=== PATIENT | male | born 1970 | race African-American/Black ===

== ENCOUNTER 2018-08-08 14:28 | Observation (INO) | payer MEDICARE, OTHER ==
[2018-08-08 15:15] LABS: #Eosinphils 0.1 thou/uL (0.0-0.7); #Lymphocytes 0.8 thou/uL (1.20-3.40); #Monocytes 0.4 thou/uL (0.11-0.59); #Neutrophils 2.6 thou/uL (1.40-6.50); %Eosinophils 2.5 % (0.0-10.0); %Lymphocytes 20.4 % (21.0-51.0); %Monocytes 10.6 % (0.0-10.0); %Neutrophils 65.5 % (42.0-75.0); Hemoglobin 8.6 g/dL (14.0-18.0); Mean Corpuscular HGB CONC 32.8 g/dL (32.0-36.0); Mean Corpuscular Hemoglobin 31.4 pg (27.0-31.0); Mean Corpuscular Volume 95.8 fL (78.0-98.0); Mean Platelet Volume 6.1 fL (7.4-10.4); Platelet Count 151 thou/uL (130-400); RBC Distribution Width 15.5 % (11.5-14.5); Red Blood Cell (RBC) Count 2.74 mill/uL (4.70-6.10)
[2018-08-08 15:35] LABS: ALT (SGPT) 7 U/L (8-55); AST (SGOT) 8 U/L (5-34); Albumin 3.4 g/dL (3.5-5.0); Alkaline Phosphatase 42 U/L (40-150); Anion Gap 14 mmol/L (10-20); BUN (Urea Nitrogen) 48 mg/dL (8.9-20.6); Bilirubin, Total 0.2 mg/dL (0.2-1.2); Calc. Creatinine Clearance 0 mL/min (70-130); Calcium 9.1 mg/dL (7.8-10.44); Carbon Dioxide 28 mmol/L (22-29); Chloride 102 mmol/L (98-107); Estimated GFR-MDRD 9; Globulin 2.7 g/dL (2.4-3.5); Glucose 87 mg/dL (70-105); Potassium 5.8 mmol/L (3.5-5.1); Protein, Total 6.1 g/dL (6.0-8.3); Sodium 138 mmol/L (136-145)
[2018-08-08 16:42] LABS: HBSAg Index 0.17 S/CO (0-0.99); Hep B Core Total Ab Non-Reactive (NonReactive); Hep B Core Total Index 0.04 S/CO (0-0.79); Hep B Surf Ag Non-Reactive S/CO (NonReactive); Hep C IgG Ab Non-Reactive (NonReactive); Hep C Index 0.04 S/CO (0-0.79)
[2018-08-08 17:30] LABS: HBSAB Concentration 8249.15 mIU/mL; Hep B Surf AB Reactive (NonReactive)
[2018-08-08] MEDS ORDERED: Ondansetron PF 4 MG/2 ML Vial IVP PRN ×2 (18:43→19:24)
[2018-08-08] MEDS ORDERED: Ondansetron ODT 4 MG TAB SL PRN (18:43)
[2018-08-08] MEDS ORDERED: Acetaminophen 325 MG TAB PO PRN (19:24)
[2018-08-08] MEDS ORDERED: Ondansetron ODT 4 MG TAB PO PRN (19:24)
--- NOTE | 2018-08-08 20:52 | HP ---
PRIMARY CARE PHYSICIAN: Dr. Lenore Fong at [facility]. CHIEF COMPLAINT: The patient was transferred from [facility] for hemodialysis. HISTORY OF PRESENT ILLNESS: The patient is a 48-year-old male with end-stage renal disease, on hemodialysis and recent hemorrhagic CVA, status post craniectomy; who was brought in from [facility]. The patient was admitted at [facility] yesterday. He underwent right occipital temporal intracranial hemorrhage with a 9-mm midline shift requiring craniectomy on August 10, 2018. He also was started on antiseizure medication. It is unclear when he was started on hemodialysis. He was admitted to inpatient rehabilitation at an outside facility on July 13, 2018. He stayed at the inpatient rehab facility for approximately 4 weeks and was transferred to [facility] yesterday. At this time, the patient appears comfortable. He is currently undergoing dialysis. There is no family at the bedside. The patient is a poor historian and not much information is available from the patient. He denies any pain, shortness of breath, or chest pain. In the emergency room, initial vital signs showed temperature 97.9, respirations 14, pulse rate of 81 with blood pressure of 135/85 with O2 saturation 100% on room air. His potassium was 5.8 with BUN of 48, creatinine 7.72. His EKG showed sinus rhythm with some peaked T-wave changes. PAST MEDICAL HISTORY: 1. Right occipital temporal intracranial hemorrhage with 9-mm midline shift, status post craniectomy on June 10, 2018. 2. Seizure disorder. 3. End-stage renal disease, on hemodialysis. 4. Hypertension. 5. Swallow dysfunction, on pureed diet. PAST SURGICAL HISTORY: 1. Craniectomy. 2. Dialysis access. ALLERGIES: THE PATIENT IS ALLERGIC TO MORPHINE. CURRENT MEDICATIONS: At [facility]; 1. Methylphenidate 5 mg b.i.d. 2. Calcitriol 0.25 mcg 2 tablets in the evening. 3. Divalproex sodium 250 mg 3 times a day. 4. Lasix 40 mg daily. 5. Gabapentin 200 mg b.i.d. 6. Ferrous sulfate 325 mg daily. 7. Lisinopril 20 mg daily. 8. Melatonin 3 mg at bedtime. 9. MiraLAX daily. 10. Senokot-S 1 tablet daily. 11. Trazodone 25 mg at bedtime. 12. Metoprolol 12.5 mg b.i.d. 13. [place] as needed. SOCIAL HISTORY: The patient currently resides at [facility]. There is no smoking, alcohol, or drug use reported. He used to drink alcohol socially. FAMILY HISTORY: Cannot be reliably obtained from the patient due to current cognitive status. REVIEW OF SYSTEMS: Cannot be reliably obtained from the patient due to current cognitive status. PHYSICAL EXAMINATION: VITAL SIGNS: Temperature 97.9, respirations 14, pulse rate of 81, blood pressure 135/85 with O2 saturation 100% on room air. GENERAL: A 48-year-old male in no apparent distress, undergoing hemodialysis. HEENT: Moist mucous membranes. No oral lesions. The patient has a helmet on. NECK: Supple. No JVD. No carotid bruits. LUNGS: Clear to auscultation bilaterally with minimal rales at bases. HEART: S1 and S2 present. Regular rate and rhythm. No murmurs, rubs, or gallops. ABDOMEN: Soft and nontender. Bowel sounds are present. EXTREMITIES: No edema or calf tenderness in lower extremities. Dialysis access noted in the right upper extremity. NEUROLOGIC: The patient is spontaneously moving all 4 extremities. Detailed neurological and psychiatry examination could not be done due to current cognitive status. SKIN: Warm and dry. LYMPH: No palpable lymph nodes in the neck. Peripheral vascular radial pulses palpable bilaterally. MUSCULOSKELETAL: No joint swelling or tenderness. LABORATORY FINDINGS: Potassium 5.8 with sodium 138, chloride 102, bicarb 28, BUN 48, creatinine 7.72. WBC 4.0 with hemoglobin 8.6, hematocrit 26.2, platelets 151. EKG by my review, as discussed above. IMPRESSION: 1. End-stage renal disease, on hemodialysis. The patient will need outpatient dialysis setup. 2. Hyperkalemia with EKG changes. 3. Hypertension. 4. Recent intracranial hemorrhage requiring craniectomy. 5. Anemia secondary to renal insufficiency. 6. Seizure disorder. 7. Swallow dysfunction, currently on pureed diet per longterm records. PLAN: The patient is undergoing emergent hemodialysis. Nephrology has been consulted. We will hold FRANCESCA inhibitor for now. We will resume all other home medications. Seizure precautions. We will repeat labs in a.m. Plan of care was discussed with the patient in detail. We will discuss the plan of care with the family when they arrive. Job ID: [id number] [facility]
[2018-08-08] MEDS: Metoprolol Tartrate 25 MG TAB PO SCH (23:01)
[2018-08-08] MEDS: Divalproex Sodium 250 MG (DR) TAB PO SCH (23:01)
[2018-08-08] MEDS: Famotidine 20 MG TAB PO SCH (23:02)
[2018-08-08] MEDS: Gabapentin 100 MG CAP PO SCH (23:02)
--- NOTE | 2018-08-08 23:28 | RAD ---
TWO VIEWS OF THE CHEST: 08/08/18 COMPARISON: None. HISTORY: Fluid overload. FINDINGS: Two views of the chest show normal sized cardiomediastinal silhouette. There is no evidence of consol idation, mass, or pleural effusion. The bones are unremarkable. IMPRESSION: No evidence of acute cardiopulmonary disease. POS: [facility]
[2018-08-08] MEDS: traZODone HCl 50 MG TAB PO SCH (23:49)
[2018-08-08] MEDS: Melatonin 3 MG TAB PO SCH (23:49)
[2018-08-09 00:09] VITALS: BMI 25.0
[2018-08-09 07:29] LABS: Anion Gap 12 mmol/L (10-20); BUN (Urea Nitrogen) 33 mg/dL (8.9-20.6); Calc. Creatinine Clearance 18 mL/min (70-130); Calcium 8.9 mg/dL (7.8-10.44); Carbon Dioxide 30 mmol/L (22-29); Chloride 101 mmol/L (98-107); Estimated GFR-MDRD 12; Glucose 61 mg/dL (70-105); Potassium 4.7 mmol/L (3.5-5.1); Sodium 138 mmol/L (136-145)
[2018-08-09] MEDS: Polyethylene Glycol 3350 17 GM Packet PO SCH (08:37)
[2018-08-09] MEDS: Gabapentin 100 MG CAP PO SCH ×2 (08:37→21:16)
[2018-08-09] MEDS: Furosemide 40 MG TAB PO SCH (08:37)
[2018-08-09] MEDS: Senokot S 8.6-50 MG TAB PO SCH (08:37)
[2018-08-09] MEDS: Metoprolol Tartrate 25 MG TAB PO SCH ×2 (08:37→21:19)
[2018-08-09] MEDS ORDERED: Prevnar 13-Val Conj/PF 0.5 ML SYRINGE IM ONE (09:00)
[2018-08-09] MEDS: Divalproex Sodium 250 MG (DR) TAB PO SCH ×3 (09:46→21:22)
--- NOTE | 2018-08-09 19:07 | PDOC.PN ---
- Subjective Encounter Start Date: 08/09/18 Encounter Start Time: 08:30 Patient seen and examined for Hyperkalemia. No new complaints. No overnight events - Objective Resuscitation Status - Order Detail: 08/08/18 19:24 Resuscitation Status Routine Resuscitation Status: FULL: Full Resuscitation MAR Reviewed: Yes Vital Signs & Weight: Vital Signs (12 hours) Temp Pulse Resp BP Pulse Ox 08/09/18 16:00 98.4 F 83 18 105/70 100 08/09/18 11:12 98.1 F 85 18 126/87 08/09/18 08:08 99.1 F 78 14 118/82 100 Weight Admit Weight 179 lb 1.6 oz Weight 179 lb 1.6 oz Result Diagrams: 08/08/18 15:05 08/09/18 05:41 EKG Reviewed by me: Yes (Tele SR) Phys Exam - Physical Examination Constitutional: NAD Respiratory: no wheezing, no rhonchi Cardiovascular: RRR, no rub Gastrointestinal: soft, non-tender, positive bowel sounds Musculoskeletal: no edema Neurological: moves all 4 limbs Dx/Plan - Plan DVT proph w/SCDs IMPRESSION: 1. End-stage renal disease, on hemodialysis. 2. Hyperkalemia with EKG changes. 3. Hypertension. 4. Recent intracranial hemorrhage requiring craniectomy. 5. Anemia secondary to renal insufficiency. 6. Seizure disorder. 7. Swallow dysfunction, currently on pureed diet per retirement records. PLAN: Await outpatient dialysis setup. Dialysis per Nephrology Cont current meds as below Review of Systems - Review of Systems Other: Cannot obtain due to current mentation. - Medications/Allergies Allergies/Adverse Reactions: Allergies Allergy/AdvReac Type Severity Reaction Status Date / Time morphine Allergy Verified 08/08/18 20:48 Medications: Current Medications Acetaminophen (Tylenol) 650 mg PO Q4H PRN PRN Reason: Headache/Fever/Mild Pain (1-3) Divalproex Sodium (Depakote) 500 mg PO Q8HR [facility] Famotidine (Pepcid) 20 mg PO QPM [facility] Last Admin: 08/08/18 23:02 Dose: 20 mg Furosemide (Lasix) 40 mg PO DAILY-AC [facility] Last Admin: 08/09/18 08:37 Dose: 40 mg Gabapentin (Neurontin) 200 mg PO BID [facility] Last Admin: 08/09/18 08:37 Dose: 200 mg Melatonin (Melatonin) 3 mg PO HS [facility] Last Admin: 08/08/18 23:49 Dose: 3 mg Metoprolol Tartrate (Lopressor) 12.5 mg PO BID [facility] Last Admin: 08/09/18 08:37 Dose: 12.5 mg Ondansetron HCl (Zofran Odt) 4 mg PO Q6H PRN PRN Reason: Nausea/Vomiting Ondansetron HCl (Zofran) 4 mg IVP Q6H PRN PRN Reason: Nausea/Vomiting Polyethylene Glycol (Miralax) 17 gm PO DAILY [facility] Last Admin: 08/09/18 08:37 Dose: 17 gm Senna/Docusate Sodium (Senokot S) 1 tab PO DAILY [facility] Last Admin: 08/09/18 08:37 Dose: 1 tab Sodium Chloride (Flush - Normal Saline) 10 ml IVF Q12HR [facility] Last Admin: 08/09/18 08:38 Dose: 10 ml Sodium Chloride (Flush - Normal Saline) 10 ml IVF PRN PRN PRN Reason: Saline Flush Trazodone HCl (Desyrel) 25 mg PO HS [facility] Last Admin: 08/08/18 23:49 Dose: 25 mg
[2018-08-09] MEDS: Famotidine 20 MG TAB PO SCH (21:16)
[2018-08-09] MEDS: Melatonin 3 MG TAB PO SCH (21:17)
[2018-08-09] MEDS: traZODone HCl 50 MG TAB PO SCH (21:21)
[2018-08-10 05:59] LABS: Anion Gap 14 mmol/L (10-20); BUN (Urea Nitrogen) 50 mg/dL (8.9-20.6); Calc. Creatinine Clearance 13 mL/min (70-130); Calcium 8.8 mg/dL (7.8-10.44); Carbon Dioxide 25 mmol/L (22-29); Chloride 103 mmol/L (98-107); Estimated GFR-MDRD 9; Glucose 70 mg/dL (70-105); Potassium 5.2 mmol/L (3.5-5.1); Sodium 137 mmol/L (136-145)
[2018-08-10] MEDS: Divalproex Sodium 250 MG (DR) TAB PO SCH ×3 (06:07→21:03)
--- NOTE | 2018-08-10 07:48 | CON ---
DATE OF CONSULTATION: 08/08/2018 TYPE OF CONSULTATION: Nephrology CONSULTING PHYSICIAN: Dr. Strauss. REASON FOR CONSULTATION: End-stage renal disease evaluation and care. REASON FOR ADMISSION: Need for dialysis. HISTORY OF PRESENT ILLNESS: This is a 48-year-old male with history of end- stage renal disease, on hemodialysis and hypertension came to the hospital with need for dialysis. The patient was recently moved from [place], but his outpatient dialysis not setup and I was consulted. The patient is being admitted for setting up outpatient dialysis. No fever or chills. No nausea or vomiting. PAST MEDICAL HISTORY: Positive for end-stage renal disease, hypertension, and POVD PAST SURGICAL HISTORY: 1. Dialysis access. 2. Craniectomy surgery. HOME MEDICATIONS: 1. Methylphenidate. 2. Calcitriol. 3. Divalproex. 4. Furosemide. 5. Melatonin. 6. Ferrous sulfate. 7. Lisinopril. 8. Gabapentin. 9. [place]. 10. Metoprolol. 11. Trazodone. 12. Senna. ALLERGIES: MORPHINE. SOCIAL HISTORY: No smoking, alcohol, or illicit drug use. FAMILY HISTORY: No history of any kidney disease. REVIEW OF SYSTEMS: CONSTITUTIONAL: Negative for weight loss or gain, ability to conduct usual activities. SKIN: Negative for rash, itching. EYES: Negative for double vision, pain. ENT/MOUTH: Negative for nose bleeding, neck stiffness, pain, tenderness. CARDIOVASCULAR: Negative for palpitations, dyspnea on exertion, orthopnea. RESPIRATORY: Negative for shortness of breath, wheezing, cough, hemoptysis, fever or night sweats. GASTROINTESTINAL: Negative for poor appetite, abdominal pain, heartburn, nausea , vomiting, constipation, or diarrhea. GENITOURINARY: Negative for urgency, frequency, dysuria, nocturia. MUSCULOSKELETAL: Negative for pain, swelling. NEUROLOGIC/PSYCHIATRIC: Negative for anxiety, depression. ALLERGY/IMMUNOLOGIC: Negative for skin rash, bleeding tendency. PHYSICAL EXAMINATION: GENERAL: Reveals a well-built male, in no apparent distress. VITAL SIGNS: Temperature 97.9, pulse 81, respiratory rate 14, and blood pressure 133/85. Musculoskeletal : No tenderness, No edema HEENT: Atraumatic normocephalic Neck: Supple Cardiovascular: S1S2 heard, Rate and rhythm regular Respiratory: Clear to auscultation Gastrointestinal: Abdomen is soft Dermatologic : No skin rash Neurologic: Alert and awake and oriented X3 No focal neurologic deficits. Moving all the extremities. Psychiatric: Mood and affect normal LABORATORY DATA: Hemoglobin 8.6, potassium 5.8. BUN is 48, and creatinine 7.7. ASSESSMENT/PLAN: 1. End-stage renal disease, we will continue on hemodialysis. 2. Hyperkalemia. 3. Anemia. 4. edema Plan is to continue dialysis. Thank you for the consult. Job ID: [id number] [facility]
[2018-08-10] MEDS: Senokot S 8.6-50 MG TAB PO SCH (10:28)
[2018-08-10] MEDS: Gabapentin 100 MG CAP PO SCH ×2 (10:28→21:03)
[2018-08-10] MEDS: Metoprolol Tartrate 25 MG TAB PO SCH ×2 (10:29→21:04)
[2018-08-10] MEDS: Furosemide 40 MG TAB PO SCH (10:29)
[2018-08-10] MEDS: Polyethylene Glycol 3350 17 GM Packet PO SCH (10:35)
--- NOTE | 2018-08-10 20:03 | PDOC.PN ---
- Subjective Encounter Start Date: 08/10/18 Encounter Start Time: 13:00 Patient seen and examined for hyperkalemia. No new complaints. No overnight events - Objective Resuscitation Status - Order Detail: 08/08/18 19:24 Resuscitation Status Routine Resuscitation Status: FULL: Full Resuscitation MAR Reviewed: Yes Vital Signs & Weight: Vital Signs (12 hours) Temp Pulse Resp BP Pulse Ox 08/10/18 16:26 98.1 F 85 18 142/98 H 100 08/10/18 12:00 97.5 F L 80 18 119/82 100 Weight Admit Weight 179 lb 1.6 oz Weight 179 lb 1.6 oz I&O: 08/09/18 08/10/18 08/11/18 06:59 06:59 06:59 Intake Total 610 Balance 610 Result Diagrams: 08/08/18 15:05 08/10/18 04:25 Additional Labs: Accuchecks 08/10/18 08/10/18 16:33 11:44 POC Glucose 85 79 Phys Exam - Physical Examination Constitutional: NAD Respiratory: no wheezing, no rhonchi Cardiovascular: RRR, no rub Gastrointestinal: soft, non-tender, positive bowel sounds Musculoskeletal: no edema Neurological: moves all 4 limbs Dx/Plan - Plan DVT proph w/SCDs IMPRESSION: 1. End-stage renal disease, on hemodialysis. 2. Hyperkalemia with EKG changes. 3. Hypertension. 4. Recent intracranial hemorrhage requiring craniectomy. 5. Anemia secondary to renal insufficiency. 6. Seizure disorder. 7. Swallow dysfunction, currently on pureed diet per correction records. PLAN: Dialysis per Nephrology Cont current meds as below Await outpatient dialysis setup. ACEI on hold Review of Systems - Review of Systems Respiratory: negative: Cough, Dry, Shortness of Breath, Hemoptysis, SOB with Excertion, Pleuritic Pain, Sputum, Wheezing Cardiovascular: negative: chest pain, palpitations, orthopnea, paroxysmal nocturnal dyspnea, edema, light headedness, other - Medications/Allergies Allergies/Adverse Reactions: Allergies Allergy/AdvReac Type Severity Reaction Status Date / Time morphine Allergy Verified 08/08/18 20:48 Medications: Current Medications Acetaminophen (Tylenol) 650 mg PO Q4H PRN PRN Reason: Headache/Fever/Mild Pain (1-3) Divalproex Sodium (Depakote) 500 mg PO Q8HR [facility] Last Admin: 12/03/18 14:55 Dose: 500 mg Famotidine (Pepcid) 20 mg PO QPM [facility] Last Admin: 08/09/18 21:16 Dose: 20 mg Furosemide (Lasix) 40 mg PO DAILY-AC [facility] Last Admin: 08/10/18 10:29 Dose: 40 mg Gabapentin (Neurontin) 200 mg PO BID [facility] Last Admin: 08/10/18 10:28 Dose: 200 mg Melatonin (Melatonin) 3 mg PO [facility] Last Admin: 08/09/18 21:17 Dose: 3 mg Metoprolol Tartrate (Lopressor) 12.5 mg PO BID [facility] Last Admin: 08/10/18 10:29 Dose: 12.5 mg Ondansetron HCl (Zofran Odt) 4 mg PO Q6H PRN PRN Reason: Nausea/Vomiting Ondansetron HCl (Zofran) 4 mg IVP Q6H PRN PRN Reason: Nausea/Vomiting Polyethylene Glycol (Miralax) 17 gm PO DAILY [facility] Last Admin: 08/10/18 10:35 Dose: 17 gm Senna/Docusate Sodium (Senokot S) 1 tab PO DAILY [facility] Last Admin: 08/10/18 10:28 Dose: 1 tab Sodium Chloride (Flush - Normal Saline) 10 ml IVF Q12HR [facility] Last Admin: 08/10/18 10:36 Dose: 10 ml Sodium Chloride (Flush - Normal Saline) 10 ml IVF PRN PRN PRN Reason: Saline Flush Trazodone HCl (Desyrel) 25 mg PO HS [facility] Last Admin: 08/09/18 21:21 Dose: 25 mg
[2018-08-10] MEDS: Famotidine 20 MG TAB PO SCH (21:03)
[2018-08-10] MEDS: Melatonin 3 MG TAB PO SCH (21:03)
[2018-08-10] MEDS: traZODone HCl 50 MG TAB PO SCH (21:04)
[2018-08-11] MEDS: Divalproex Sodium 250 MG (DR) TAB PO SCH ×3 (05:20→20:00)
[2018-08-11 06:53] LABS: Anion Gap 14 mmol/L (10-20); BUN (Urea Nitrogen) 60 mg/dL (8.9-20.6); Calc. Creatinine Clearance 11 mL/min (70-130); Calcium 9.2 mg/dL (7.8-10.44); Carbon Dioxide 24 mmol/L (22-29); Chloride 104 mmol/L (98-107); Estimated GFR-MDRD 7; Glucose 76 mg/dL (70-105); Potassium 5.2 mmol/L (3.5-5.1); Sodium 137 mmol/L (136-145)
[2018-08-11] MEDS: Metoprolol Tartrate 25 MG TAB PO SCH ×2 (12:15→19:58)
[2018-08-11] MEDS: Furosemide 40 MG TAB PO SCH (12:15)
[2018-08-11] MEDS: Senokot S 8.6-50 MG TAB PO SCH (12:15)
[2018-08-11] MEDS: Gabapentin 100 MG CAP PO SCH ×2 (12:15→19:58)
[2018-08-11] MEDS: Polyethylene Glycol 3350 17 GM Packet PO SCH (12:15)
--- NOTE | 2018-08-11 13:25 | PRG ---
DATE OF SERVICE: 08/11/2018 SUBJECTIVE: A 48-year-old gentleman, being seen for end-stage renal disease. The patient denies nausea, vomiting, or chest pain. OBJECTIVE: GENERAL: The patient is awake and alert. VITAL SIGNS: Afebrile, pulse 64, breathing 16, blood pressure 156/80. GENERAL APPEARANCE AND MENTAL STATUS: Fair. HEAD/NECK: Normocephalic. Atraumatic. EYES: EOMI. No deformity. EARS: Clear. No ulcers. NOSE: Intact. No lesions. MOUTH: Clear. No discharge. THROAT: Clear. No exudate. LUNGS: Clear. No crackles. CARDIAC: S1, S2. No rub. ABDOMEN: Benign. Bowel sounds positive. GENITALIA/RECTUM: Olvera absent. BACK/EXTREMITIES: Edema 0+. NEUROLOGICAL: Alert and motor intact. LABORATORY DATA: Hemoglobin 8.6. Potassium 5.2. ASSESSMENT: 1. Stage 3 chronic kidney disease, on dialysis. 2. Hypertension, stable. 3. Anemia, stable. 4. Medications based on glomerular filtration rate are appropriate. Job ID: [id number]
--- NOTE | 2018-08-11 17:15 | PDOC.PN ---
- Subjective Encounter Start Date: 08/11/18 Encounter Start Time: 12:00 Patient seen and examined for hyperkalemia. No new complaints. No overnight events - Objective Resuscitation Status - Order Detail: 08/08/18 19:24 Resuscitation Status Routine Resuscitation Status: FULL: Full Resuscitation MAR Reviewed: Yes Vital Signs & Weight: Weight Admit Weight 179 lb 1.6 oz Weight 179 lb 1.6 oz I&O: 08/10/18 08/11/18 08/12/18 06:59 06:59 06:59 Intake Total 610 490 Balance 610 490 Result Diagrams: 08/08/18 15:05 08/11/18 06:00 Phys Exam - Physical Examination Constitutional: NAD Respiratory: no wheezing, no rhonchi Cardiovascular: RRR, no rub Gastrointestinal: soft, non-tender, positive bowel sounds Musculoskeletal: no edema Neurological: moves all 4 limbs Dx/Plan - Plan DVT proph w/SCDs 1. End-stage renal disease, on hemodialysis. 2. Hyperkalemia with EKG changes. 3. Hypertension. 4. Recent intracranial hemorrhage requiring craniectomy. 5. Anemia secondary to renal insufficiency. 6. Seizure disorder. 7. Swallow dysfunction PLAN: Await outpatient dialysis setup. Family also requesting a different SNF Stable for dc BMP in AM ACEI on hold Review of Systems - Review of Systems Respiratory: negative: Cough, Dry, Shortness of Breath, Hemoptysis, SOB with Excertion, Pleuritic Pain, Sputum, Wheezing Cardiovascular: negative: chest pain, palpitations, orthopnea, paroxysmal nocturnal dyspnea, edema, light headedness, other - Medications/Allergies Allergies/Adverse Reactions: Allergies Allergy/AdvReac Type Severity Reaction Status Date / Time morphine Allergy Verified 08/08/18 20:48 Medications: Current Medications Acetaminophen (Tylenol) 650 mg PO Q4H PRN PRN Reason: Headache/Fever/Mild Pain (1-3) Divalproex Sodium (Depakote) 500 mg PO Q8HR [facility] Last Admin: 08/11/18 05:20 Dose: 500 mg Famotidine (Pepcid) 20 mg PO QPM [facility] Last Admin: 08/10/18 21:03 Dose: 20 mg Furosemide (Lasix) 40 mg PO DAILY-AC [facility] Last Admin: 08/11/18 12:15 Dose: Not Given Gabapentin (Neurontin) 200 mg PO BID [facility] Last Admin: 08/11/18 12:15 Dose: Not Given Melatonin (Melatonin) 3 mg PO HS [facility] Last Admin: 08/10/18 21:03 Dose: 3 mg Metoprolol Tartrate (Lopressor) 12.5 mg PO BID [facility] Last Admin: 08/11/18 12:15 Dose: Not Given Ondansetron HCl (Zofran Odt) 4 mg PO Q6H PRN PRN Reason: Nausea/Vomiting Ondansetron HCl (Zofran) 4 mg IVP Q6H PRN PRN Reason: Nausea/Vomiting Polyethylene Glycol (Miralax) 17 gm PO DAILY [facility] Last Admin: 08/11/18 12:15 Dose: Not Given Senna/Docusate Sodium (Senokot S) 1 tab PO DAILY [facility] Last Admin: 08/11/18 12:15 Dose: Not Given Sodium Chloride (Flush - Normal Saline) 10 ml IVF Q12HR [facility] Last Admin: 08/11/18 12:15 Dose: Not Given Sodium Chloride (Flush - Normal Saline) 10 ml IVF PRN PRN PRN Reason: Saline Flush Trazodone HCl (Desyrel) 25 mg PO HS [facility] Last Admin: 08/10/18 21:04 Dose: 25 mg
[2018-08-11] MEDS ORDERED: Lorazepam 2 MG/ML VIAL SLOW IVP PRN (18:05)
[2018-08-11] MEDS: traZODone HCl 50 MG TAB PO SCH (19:57)
[2018-08-11] MEDS: Melatonin 3 MG TAB PO SCH (19:58)
[2018-08-11] MEDS: Famotidine 20 MG TAB PO SCH (19:58)
[2018-08-12] MEDS: Divalproex Sodium 250 MG (DR) TAB PO SCH ×3 (05:32→20:07)
[2018-08-12] MEDS: Senokot S 8.6-50 MG TAB PO SCH (08:12)
[2018-08-12] MEDS: Metoprolol Tartrate 25 MG TAB PO SCH ×2 (08:12→20:07)
[2018-08-12] MEDS: Furosemide 40 MG TAB PO SCH (08:12)
[2018-08-12] MEDS: Gabapentin 100 MG CAP PO SCH ×2 (08:12→20:07)
[2018-08-12] MEDS: Polyethylene Glycol 3350 17 GM Packet PO SCH (08:13)
--- NOTE | 2018-08-12 11:34 | PRG ---
DATE OF SERVICE: 08/12/2018 SUBJECTIVE: A 48-year-old gentleman, being seen for end-stage renal disease. The patient denies nausea, vomiting, or chest pain. OBJECTIVE: GENERAL: The patient is awake, alert, in no acute distress. VITAL SIGNS: Pulse 66, breathing 16, and blood pressure 112/55. GENERAL APPEARANCE AND MENTAL STATUS: Fair. HEAD/NECK: Normocephalic. Atraumatic. EYES: EOMI. No deformity. EARS: Clear. No ulcers. NOSE: Intact. No lesions. MOUTH: Clear. No discharge. THROAT: Clear. No exudate. LUNGS: Clear. No crackles. CARDIAC: S1, S2. No rub. ABDOMEN: Benign. Bowel sounds positive. GENITALIA/RECTUM: Olvera absent. BACK/EXTREMITIES: Edema 0+. NEUROLOGICAL: Alert and motor intact. LABORATORY DATA: Labs showed hemoglobin 8.6 and potassium 5.2. ASSESSMENT: 1. Stage 3 chronic kidney disease, continue hemodialysis. 2. Hypertension, stable. 3. Anemia, stable. 4. Medications based on glomerular filtration rate are appropriate. Job ID: [id number]
--- NOTE | 2018-08-12 13:00 | DIS ---
DATE OF ADMISSION: 08/08/2018 DATE OF DISCHARGE: 08/12/2018 [facility] INPATIENT PROPERTY ASSISTANT: Dr. Gomez, Nephrology. ALLERGIES: MORPHINE. THE PATIENT WAS SEEN AND EXAMINED ON THE DAY OF DISCHARGE. DENIES ANY NEW COMPLAINTS. NO CHEST PAIN, SHORTNESS OF BREATH, OR PALPITATIONS. BRIEF HOSPITAL COURSE: The patient is a 48-year-old male with end-stage renal disease, on hemodialysis; with recent hemorrhagic CVA, status post craniectomy; was admitted at [facility] for rehabilitation. He was sent to the hospital since hemodialysis was not set up. He was seen by Nephrology, Dr. Gomez. He was also found to have hyperkalemia with potassium of 5.8 on admission. He will be discharged later today after hemodialysis setup. The family also decided to change the fdc facility to [facility]. He appears stable for discharge. FINAL DIAGNOSES: 1. End-stage renal disease, on hemodialysis, pending outpatient dialysis setup. 2. Hyperkalemia with EKG changes, improved with dialysis. 3. Hypertension. FRANCESCA inhibitor has been discontinued due to hyperkalemia. 4. Recent intracranial hemorrhage requiring craniectomy. 5. Anemia secondary to renal insufficiency. 6. Seizure disorder. 7. Swallow dysfunction, on modified diet. PHYSICAL EXAMINATION: VITAL SIGNS: On the day of discharge; temperature 98.2, pulse rate of 66, respirations 16, blood pressure 112/55, with O2 saturation 100% on room air. Plan of care was discussed with the patient in detail. He stated understanding. Job ID: [id number]
--- NOTE | 2018-08-12 18:16 | PRG ---
DATE OF SERVICE: 08/10/2018 SUBJECTIVE: Patient was seen and examined at bedside and overnight events noted. Patient denies any shortness of breath or chest pain or palpitation. No history of nausea or vomiting or diarrhea or fever or chills or cramps. OBJECTIVE: GENERAL: This is a well-built male, in no apparent distress. VITAL SIGNS: Temperature , pulse 80, respiratory rate , blood pressure . HEENT: Atraumatic, normocephalic. Oral mucosa is moist NECK: Supple. CARDIOVASCULAR: S1, S2 heard. Rate and rhythm regular. RESPIRATORY: Clear to auscultation. GASTROINTESTINAL: Abdomen is soft. MUSCULOSKELETAL: No tenderness. No edema. DERMATOLOGIC: No skin rash. NEUROLOGIC: Alert and awake and oriented X3. No focal neurologic deficits. Moving all the extremities. PSYCHIATRIC: Mood and affect normal. LABORATORY DATA: Potassium is 5.2, BUN is 50, creatinine is 8.1. ASSESSMENT: 1. End-stage renal disease, continue dialysis on Friday, , and Friday. 2. Hyperkalemia. Limit potassium. 3. Anemia. 4. Edema. 5. Hypertension. PLAN: We will continue on dialysis as tolerated. Job ID: [id number]
--- NOTE | 2018-08-12 18:18 | PRG ---
DATE OF SERVICE: 08/09/2018 SUBJECTIVE: Patient was seen and examined at bedside and overnight events noted. Patient denies any shortness of breath or chest pain or palpitation. No history of nausea or vomiting or diarrhea or fever or chills or cramps. OBJECTIVE: GENERAL: This is a well-built male, in no apparent distress. VITAL SIGNS: Temperature . Pulse 75. Respiratory rate . Blood pressure 136/87. HEENT: Atraumatic, normocephalic. Oral mucosa is moist NECK: Supple. CARDIOVASCULAR: S1, S2 heard. Rate and rhythm regular. RESPIRATORY: Clear to auscultation. GASTROINTESTINAL: Abdomen is soft. MUSCULOSKELETAL: No tenderness. No edema. DERMATOLOGIC: No skin rash. NEUROLOGIC: Alert and awake and oriented X3. No focal neurologic deficits. Moving all the extremities. PSYCHIATRIC: Mood and affect normal. LABORATORY DATA: Potassium is 4.7, BUN is 33, creatinine is 6.05. ASSESSMENT: 1. End-stage renal disease, on hemodialysis. We will continue dialysis on Friday, , and Friday. 2. Hyperkalemia, better. 3. Edema . 4. Hypertension, stable. 5. Anemia. We will add Epogen. PLAN: Plan is to continue dialysis on Friday, , and Friday. Follow with Case Management for outpatient placement. Job ID: [id number]
[2018-08-12] MEDS: Melatonin 3 MG TAB PO SCH (20:07)
[2018-08-12] MEDS: Famotidine 20 MG TAB PO SCH (20:08)
[2018-08-12] MEDS: traZODone HCl 50 MG TAB PO SCH (20:08)
[2018-08-13] MEDS: Divalproex Sodium 250 MG (DR) TAB PO SCH ×2 (05:57→12:26)
[2018-08-13] MEDS: Metoprolol Tartrate 25 MG TAB PO SCH (12:03)
[2018-08-13] MEDS: Gabapentin 100 MG CAP PO SCH (12:03)
[2018-08-13] MEDS: Polyethylene Glycol 3350 17 GM Packet PO SCH (12:03)
[2018-08-13] MEDS: Senokot S 8.6-50 MG TAB PO SCH (12:04)
[2018-08-13] MEDS: Furosemide 40 MG TAB PO SCH (12:27)
--- NOTE | 2018-08-13 12:29 | PRG ---
DATE OF SERVICE: 08/13/2018 SUBJECTIVE: A 48-year-old gentleman, being seen for end-stage renal disease. The patient denies nausea, vomiting, or chest pain OBJECTIVE: GENERAL: The patient is awake, alert. VITAL SIGNS: Pulse 88, breathing 16, and blood pressure 92/63. GENERAL APPEARANCE AND MENTAL STATUS: Fair. HEAD/NECK: Normocephalic. Atraumatic. EYES: EOMI. No deformity. EARS: Clear. No ulcers. NOSE: Intact. No lesions. MOUTH: Clear. No discharge. THROAT: Clear. No exudate. LUNGS: Clear. No crackles. CARDIAC: S1, S2. No rub. ABDOMEN: Benign. Bowel sounds positive. GENITALIA/RECTUM: Ol[place] absent. BACK/EXTREMITIES: Edema 0+. NEUROLOGICAL: Alert and motor intact. LABORATORY DATA: None. ASSESSMENT: 1. Stage 3 chronic kidney disease, continue hemodialysis. 2. Hypertension, stable. 3. Anemia, stable. Medications based on glomerular filtration rate are appropriate. Job ID: [id number]
[2018-08-13 16:28] VITALS: BP 124/83; TEMP 98.5
--- NOTE | 2018-08-14 13:38 | DIS ---
DATE OF ADMISSION: 08/08/2018 DATE OF DISCHARGE: 08/13/2018 DISCHARGE DISPOSITION: To [facility]. ALLERGIES: THE PATIENT IS ALLERGIC TO MORPHINE. PLEASE REFER TO MY DISCHARGE SUMMARY DATED August. THE PATIENT STAYED OVERNIGHT DUE TO PENDING OUTPATIENT DIALYSIS SETUP. HE UNDERWENT DIALYSIS ON THE DAY OF DISCHARGE. HE APPEARS STABLE FOR DISCHARGE. PLEASE REFER TO MY DISCHARGE SUMMARY DICTATED YESTERDAY ON HOSPITAL COURSE AND FINAL DIAGNOSIS. Job ID: [id number]
--- NOTE | 2018-08-15 14:21 | EKG ---
Test Reason : Blood Pressure : / mmHG Vent. Rate : 077 BPM Atrial Rate : 077 BPM P-R Int : 146 ms QRS Dur : 072 ms QT Int : 352 ms P-R-T Axes : 094 -10 041 degrees QTc Int : 398 ms Normal sinus rhythm Normal ECG Confirmed by SHELTON MACHADO MD ([id number]), communications editor DIAN ALVA ([id number]) on 08/15/2018 2:21:17 PM Referred By: JEANNETTE Confirmed By:SHELTON MACHADO MD
== END 2018-08-13 17:10 ==
LOC: ERS 14:28 → 2NO 18:40 → T4-A 08-09 10:59
PROVIDERS: ADMIT Internal Medicine; ATTEND Internal Medicine
DX: I12.0 Hypertensive chronic kidney disease with stage 5 chronic kidney disease or end stage renal disease (principal); N18.6 End stage renal disease; D63.1 Anemia in chronic kidney disease; E87.5 Hyperkalemia; G43.909 Migraine, unspecified, not intractable, without status migrainosus; R13.10 Dysphagia, unspecified; Z86.73 Personal history of transient ischemic attack (TIA), and cerebral infarction without residual deficits; Z79.899 Other long term (current) drug therapy; Z88.5 Allergy status to narcotic agent; Z99.2 Dependence on renal dialysis; Z98.890 Other specified postprocedural states
CPT/HCPCS: 71046; 80048 ×3; 80053; 82962; 85025; 86704; 86706; 86803; 87340; 93005; 94760; 97116 ×2; 97139 ×5; 99285; G0378 ×4; G8978; G8979; G8987; G8988; G8989; 36415; 36416; 90935; G0257; G8996-GN-CK; G8997-GN-CK

== ENCOUNTER 2018-08-21 16:04 | Emergency (ER) | payer MEDICARE ==
[2018-08-21] MEDS ORDERED: Lorazepam 2 MG/ML VIAL ONE ×2 (16:39→16:47)
[2018-08-21] MEDS ORDERED: Haloperidol Lactate 5 MG/ML VIAL ONE (16:47)
[2018-08-21 17:11] LABS: #Eosinphils 0.1 thou/uL (0.0-0.7); #Lymphocytes 1.5 thou/uL (1.20-3.40); #Monocytes 0.4 thou/uL (0.11-0.59); #Neutrophils 4.3 thou/uL (1.40-6.50); %Basophils 0.5 % (0.0-1.0); %Eosinophils 1.1 % (0.0-10.0); %Lymphocytes 23.8 % (21.0-51.0); %Monocytes 6.6 % (0.0-10.0); %Neutrophils 68.1 % (42.0-75.0); Hemoglobin 9.9 g/dL (14.0-18.0); Mean Corpuscular HGB CONC 33.4 g/dL (32.0-36.0); Mean Corpuscular Hemoglobin 31.5 pg (27.0-31.0); Mean Corpuscular Volume 94.3 fL (78.0-98.0); Mean Platelet Volume 6.9 fL (7.4-10.4); Platelet Count 199 thou/uL (130-400); RBC Distribution Width 14.6 % (11.5-14.5); Red Blood Cell (RBC) Count 3.14 mill/uL (4.70-6.10); White Blood Cell (WBC) Count 6.4 thou/uL (4.8-10.8)
[2018-08-21 17:32] LABS: ALT (SGPT) Less than 7 U/L (8-55); AST (SGOT) 12 U/L (5-34); Albumin 4.2 g/dL (3.5-5.0); Alkaline Phosphatase 55 U/L (40-150); Anion Gap 16 mmol/L (10-20); BUN (Urea Nitrogen) 34 mg/dL (8.9-20.6); Bilirubin, Total 0.3 mg/dL (0.2-1.2); Calc. Creatinine Clearance 0 mL/min (70-130); Calcium 9.6 mg/dL (7.8-10.44); Carbon Dioxide 30 mmol/L (22-29); Chloride 98 mmol/L (98-107); Estimated GFR-MDRD 11; Globulin 3.2 g/dL (2.4-3.5); Glucose 75 mg/dL (70-105); Potassium 4.5 mmol/L (3.5-5.1); Protein, Total 7.4 g/dL (6.0-8.3); Sodium 139 mmol/L (136-145)
--- NOTE | 2018-08-21 18:26 | RAD ---
PORTABLE CHEST: 08/21/18 HISTORY: Mental status change. Lungs are clear. No infiltrate or vascular congestion. Heart is mildly prominent. IMPRESSION: No acute process. POS: [facility]
--- NOTE | 2018-08-21 19:20 | CT ---
CT HEAD WITHOUT CONTRAST: 08/21/18 Multiple axial tomograms obtained through the head without IV enhancement. HISTORY: Mental status change. COMPARISON: Comparison made to a head CT of 07/18/12. There are craniotomy changes since the prior study. Large bone flap over the right cerebral hemispher e has been removed since the prior exam. 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 There is extra-axial CSF along the right convexity primarily involving the right temporal lobe and portions of the right frontal and parietal lobe. This appears to mildly efface the cortex. There are no comparison studies to determine if this is a new finding. The ventricles are normal size and position. There is no evidence of cranial hemorrhage or evidence o f acute parenchymal process. 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 There is increased extra-axial CSF a long the right convexity which may be effacing the cortex. No prior films are available to determine if this is a new finding. Suggest neurosurgical consultation. POS: [facility]
--- NOTE | 2018-08-25 12:41 | EKG ---
Test Reason : Blood Pressure : / mmHG Vent. Rate : 089 BPM Atrial Rate : 089 BPM P-R Int : 152 ms QRS Dur : 086 ms QT Int : 370 ms P-R-T Axes : 027 -06 032 degrees QTc Int : 450 ms Normal sinus rhythm Minimal voltage criteria for LVH, may be normal variant Borderline ECG Confirmed by AUSTIN SILVA, SHO Boyce ([id number]), telegraph editor SHAWN MCALLISTER ([id number]) on 08/25/2018 12:41:19 PM Referred By: Confirmed By:SHO AVILA MD
== END 2018-08-21 21:03 ==
LOC: ERS 16:04
DX: R41.82 Altered mental status, unspecified (principal); I10 Essential (primary) hypertension; Z79.899 Other long term (current) drug therapy
CPT/HCPCS: 70450; 71045; 80053; 85025; 93005; 96374; 96375; J1630; J2060

== ENCOUNTER 2018-08-25 18:48 | Emergency (ER) | payer MEDICARE | END 2018-08-25 19:50 | disposition left against medical advice (07) | LOC: ERS 18:48 | DX: Z53.21 Procedure and treatment not carried out due to patient leaving prior to being seen by health care provider (principal) ==